=== PATIENT | female | born 1980 | race Two or more races ===

== ENCOUNTER 2016-05-07 19:26 | Emergency (ER) | payer SELFPAY ==
[2016-05-07 19:44] VITALS: PULSE 86
[2016-05-07] MEDS ORDERED: TDAP ADULT 0.5 ML VIAL (BOOSTRIX) IM ONE (20:09)
--- NOTE | 2016-05-07 20:13 | EDPHY ---
H & P Time Seen by Provider: 05/07/16 19:52 HPI/ROS: CHIEF COMPLAINT: Laceration left 2nd finger HISTORY OF PRESENT ILLNESS: 35-year-old female presents to the emergency department by private vehicle with a laceration to her left 2nd finger. The patient was at home cooking and accidentally cut her finger with a knife. The incident happened 5 hours prior to arrival. She came to the emergency department because it would not stop bleeding. Current on tetanus shot. She is right-hand dominant. Denies any other injury or trauma. ROS: Denies numbness or tingling in her fingers, retained foreign body. Past Medical/Surgical History: Surgeries Smoking Status: Never smoked Physical Exam: On examination the patient has a 1 cm skin avulsion to the distal aspect of the left 2nd finger with partial nail avulsion. The avulsion does not extend into the DIP joint. She has normal sensation with full range of motion of her fingers. No palpable bony tenderness. The other fingers appear on injured. Constitutional: Initial Vital Signs Temperature (C) 36.8 C 05/07/16 19:40 Heart Rate 86 05/07/16 19:40 Respiratory Rate 16 05/07/16 19:40 Blood Pressure 109/72 05/07/16 19:40 O2 Sat (%) 99 05/07/16 19:40 O2 Delivery Mode Room Air Allergies/Adverse Reactions: No Known Allergies Allergy (Unverified 05/07/16 19:44) Home Medications: Medication Instructions Recorded NK [No Known Home Meds] 05/07/16 MDM/Departure - MDM ED Course/Re-evaluation: A 35-year-old female with left 2nd finger injury. Skin avulsion is noted. Does not require sutures. This was explained to the patient. Surgical foam and tube gauze dressing applied. Her tetanus shot is current. She was given wound care precautions. - Depart Disposition: Home, Routine, Self-Care Clinical Impression: Avulsion of skin of index finger Qualifiers: Encounter type: initial encounter Qualifier Code: (S61.208A) Unspecified open wound of other finger without damage to nail, initial encounter Condition: Good Instructions: Skin Avulsion (ED), Acute Wound Care (ED) Additional Instructions: Keep wound dry, clean and protected. Ibuprofen 600 mg every 8 hours as needed for pain. Return to the emergency department if he notices any signs or symptoms of infection such as redness, swelling, increased pain, fever, purulent drainage.
[2016-05-07 21:10] VITALS: BP 116/86; RESP 18; TEMP 97.9; O2SAT 92
--- NOTE | 2016-05-07 23:05 | EDPHY ---
ED Progress Note Narrative: The patient presented to the emergency department and was not seen by a provider. She was triaged and assessed by the nurse. She was discharged from the emergency department with the wrong patient information. Multiple attempts were made by the charge nurse to contact the patient. The patient has not called back to the emergency department. We will continue to try to contact this patient and advised her to come to the emergency department so that she can be examined by a medical provider.
== END 2016-05-07 20:40 | disposition left against medical advice (07) ==
DX: Z53.20 Procedure and treatment not carried out because of patient's decision for unspecified reasons (principal)